=== PATIENT | male | born 1945 | race Caucasian/White ===

== ENCOUNTER 2021-05-19 10:22 | Inpatient (IN) | payer MEDICAID ==
[~2021-05-19] VITALS: Ht 157.5 cm; Wt 72.6 kg
[2021-05-19 10:39] VITALS: BP 141/51
--- NOTE | 2021-05-19 10:45 | NUR ---
76 Y/O M BIBA C/O PICC LINE BLEEDING R UPPER CHEST. PT COMPLAINS OF NO PAIN AT THIS TIME. PT PULLED ONT THE PICC LINE GETTING OUT OF THE SHOWER. PT IS A DIALYSIS PT. LAST ONE WAS YESTERDAY. BLEEDING CONTROLLED WITH ICE AND PRESSURE. NKA PMH:HTN, DM, DIALYSIS ( MON, , MONDAY)
--- NOTE | 2021-05-19 10:47 | NUR ---
DR MEJIA AT BEDSIDE.
--- NOTE | 2021-05-19 11:05 | NUR ---
LAB AT BEDSIDE.
[2021-05-19 11:25] LABS: BASOPHILS # (AUTO) 0.1 K/uL (0.00-0.22); BASOPHILS % (AUTO) 1.7 % (0.0-2.0); EOSINOPHILS # (AUTO) 0.1 K/uL (0-0.4); EOSINOPHILS % (AUTO) 2.5 % (0.0-4.0); HEMOGLOBIN 10.5 g/dL (12.0-18.0); LYMPHOCYTES % (AUTO) 19.4 % (20.5-51.1); MEAN CORPUSCULAR HEMOGLOBIN 35 pg (27-31); MEAN CORPUSCULAR HGB CONC 34 g/dL (33-37); MONOCYTES # (AUTO) 0.4 K/uL (0.8-1.0); MONOCYTES % (AUTO) 7.9 % (1.7-9.3); NEUTROPHILS # (AUTO) 3.4 K/uL (1.8-7.7); NEUTROPHILS % (AUTO) 68.5 % (42.2-75.2); PLATELET COUNT (AUTO) 250 K/uL (140-450); RED BLOOD CELL COUNT(AUTO) 2.98 MIL/uL (4.20-6.10); RED CELL DISTRIBUTION WIDTH 15.2 % (11.6-13.7); WHITE BLOOD COUNT (AUTO) 4.9 K/uL (4.8-10.8)
--- NOTE | 2021-05-19 11:34 | NUR ---
X-RAY AT BEDSIDE.
[2021-05-19 11:43] LABS: PROTHROMBIN TIME 10.9 secs (10.8-13.4)
[2021-05-19 11:44] LABS: ALBUMIN 3.3 g/dL (3.4-5.0); ANION GAP 11.4 (8-16); ASPARTATE AMINOTRANSFERASE 13 U/L (15-37); CHLORIDE 105 mmol/L (98-107); GLUCOSE 139 mg/dL (74-106); POTASSIUM 4.4 mmol/L (3.5-5.1); SODIUM SERUM 141 mmol/L (136-145); TOTAL BILIRUBIN 0.4 mg/dL (0.0-1.0)
[2021-05-19 11:46] LABS: CREATININE 5.7 mg/dL (0.6-1.3)
[2021-05-19] MEDS ORDERED: PROPOFOL 200 MG/20 ML VIAL IV ONE (13:20)
[2021-05-19] MEDS ORDERED: fentaNYL citrate 0.05 MG/ML VIAL ONE (13:20)
--- NOTE | 2021-05-19 13:30 | NUR ---
PT IS GOING TO SURGERY VIA WHEELCHAIR.
[2021-05-19] MEDS ORDERED: ceFAZolin 1,000 MG VIAL ONE (13:45)
[2021-05-19] MEDS ORDERED: BUPIVACAINE-MPF/EPI 0.25% 30 ML VIAL INJ ONE (13:45)
[2021-05-19] MEDS ORDERED: LIDOCAINE 1% 500 MG/50 ML VIAL ONE (13:45)
[2021-05-19] MEDS ORDERED: BLOOD GLUCOSE MONITORING 1 DEV DEV FS SCH (14:55)
[2021-05-19] MEDS: NACL 0.9% 1,000 ML IV SCH ×2 (14:55→23:15)
[2021-05-19] MEDS ORDERED: diphenhydrAMINE 50 MG/ML VIAL IVP PRN (14:55)
[2021-05-19] MEDS ORDERED: ONDANSETRON 4 MG/2 ML VIAL IVP PRN (14:55)
[2021-05-19 15:40] VITALS: BP 125/63
--- NOTE | 2021-05-19 15:40 | NUR ---
PATIENT ARRIVED FROM SURGERY. IN STABLE. CONDITION. RIGHT TUNNELED CATHTER PLACED. SMALL AMOUNT BLEEDING. PRESSURE WEIGHT PLACED ON SITE. IV SITE INTACT, PATENT, AND INFUSING IVF PER MD ORDERS. WILL CONTINUE TO MONITOR.
--- NOTE | 2021-05-19 19:35 | NUR ---
GAVE REPORT TO FIELD PIPELINES SUPERVISOR NURSE FOR CONTINUITY OF CARE. PATIENT IN STABLE CONDITION.
--- NOTE | 2021-05-19 19:36 | NUR ---
RECEIVED PATIENT REPORT FROM AM SHIFT NURSE FOR CONTINUITY OF CARE. PATIENT IN BED AWAKE, ALERT AND VERBALLY RESPONSIVE. ABLE TO VERBALIZED NEEDS. BREATHING EVEN AND UNLABORED WITH NO SOB NOTED. NOT IN DISTRESS. DENIES ANY PAIN OR DISCOMFORT AT THIS TIME. ALL SAFETY MEASURES ARE IN PLACE. CALL LIGHT WITHIN REACH. WILL CONTINUE WITH THE CURRENT PLAN OF CARE.
--- NOTE | 2021-05-19 21:45 | NUR ---
DAUGHTER BROUGHT BAG WITH 2 BLANKETS AND BLACK GLOVES FOR PATIENT'S USE. BAG PUT IN PATIENT'S ROOM AND HE USED ONE BLANKET. THE OTHER BLANKET AND GLOVES LEFT IN THE BAG ON HIS BEDSIDE TABLE.
[2021-05-20] VITALS: BP 145/61
--- NOTE | 2021-05-20 00:19 | NUR ---
ROUNDED ON PATIENT. PATIENT ASLEEP WITH VISIBLE CHEST RISING AND FALLING. NO SOB NOTED. ALL SAFETY MEASURES IN PLACE. CALL LIGHT WITHIN REACH. WILL CONTINUE TO MONITOR.
--- NOTE | 2021-05-20 02:53 | NUR ---
CHECKED ON PATIENT. SLEEPING WELL. VISIBLE CHEST RISING AND FALLING. CALL LIGHT WITHIN REACH. WILL CONTINUE TO MONITOR.
--- NOTE | 2021-05-20 05:35 | NUR ---
Patient's Plan of Care was discussed and reviewed with CASKET ASSEMBLER: october
[2021-05-20 06:29] LABS: BASOPHILS # (AUTO) 0.1 K/uL (0.00-0.22); EOSINOPHILS # (AUTO) 0.2 K/uL (0-0.4); EOSINOPHILS % (AUTO) 3.6 % (0.0-4.0); HEMATOCRIT 29.7 % (36-52); HEMOGLOBIN 10.1 g/dL (12.0-18.0); LYMPHOCYTES # (AUTO) 0.9 K/uL (2.0-11.5); LYMPHOCYTES % (AUTO) 15.6 % (20.5-51.1); MEAN CORPUSCULAR HEMOGLOBIN 35 pg (27-31); MEAN CORPUSCULAR HGB CONC 34 g/dL (33-37); MEAN CORPUSCULAR VOLUME 103.7 fL (80-94); MONOCYTES # (AUTO) 0.4 K/uL (0.8-1.0); MONOCYTES % (AUTO) 8.1 % (1.7-9.3); NEUTROPHILS # (AUTO) 3.9 K/uL (1.8-7.7); NEUTROPHILS % (AUTO) 71.7 % (42.2-75.2); PLATELET COUNT (AUTO) 245 K/uL (140-450); RED BLOOD CELL COUNT(AUTO) 2.86 MIL/uL (4.20-6.10); RED CELL DISTRIBUTION WIDTH 14.6 % (11.6-13.7); WHITE BLOOD COUNT (AUTO) 5.5 K/uL (4.8-10.8)
[2021-05-20 07:11] LABS: ALBUMIN 3.1 g/dL (3.4-5.0); ASPARTATE AMINOTRANSFERASE 13 U/L (15-37); CARBON DIOXIDE 25.7 mmol/L (21-32); CHLORIDE 105 mmol/L (98-107); GLUCOSE 113 mg/dL (74-106); POTASSIUM 4.7 mmol/L (3.5-5.1); SODIUM SERUM 144 mmol/L (136-145); TOTAL BILIRUBIN 0.4 mg/dL (0.0-1.0); UREA NITROGEN, BLOOD 42 mg/dL (7-18)
[2021-05-20 07:18] LABS: CREATININE 6.7 mg/dL (0.6-1.3)
--- NOTE | 2021-05-20 07:20 | NUR ---
ENDORSED PATIENT TO AM SHIFT NURSE FOR CONTINUITY OF CARE. PATIENT IS STABLE.
--- NOTE | 2021-05-20 07:47 | NUR ---
CALL PLACE TO KAMERON DAUGHTER TO ASKED WHO IS THE NEPRO, PER KAMERON THE NEPHRO IS DR GOODWIN, , WILL INFORM DR ALMEIDA,
--- NOTE | 2021-05-20 07:56 | NUR ---
TALKED TO EDELMIRA FOR THE DIALYSIS
[2021-05-20 08:00] VITALS: BP 137/68
--- NOTE | 2021-05-20 08:15 | NUR ---
PATIENT AWAKE, DRESSING ON RIGHT TUNNELED CATHETER INTACT WITH DRY BLOOD, 2 PORT, ON ROOM AIR, WILL CALL MD PATIENT ON CLEAR LIQUID DIET, CALL LIGHT WITHIN EASY REACH.
--- NOTE | 2021-05-20 08:37 | NUR ---
PATIENT HAS BEEN SCREENED AND CATEGORIZED LOW NUTRITION RISK. PATIENT WILL BE SEEN WITHIN 7 DAYS OF ADMISSION. 05/24/21 REFERRAL RECEIVED NOT APPLICABLE [address]
[2021-05-20] MEDS ORDERED: ZOLPIDEM 5 MG TAB PO PRN (08:50)
[2021-05-20] MEDS ORDERED: DOCUSATE SODIUM 100 MG GELCAP PO PRN (08:50)
[2021-05-20] MEDS ORDERED: ONDANSETRON 4 MG/2 ML VIAL IM/IVP PRN (08:50)
[2021-05-20] MEDS ORDERED: POTASSIUM CHLORIDE 10 MEQ TABER PO PRN (08:50)
[2021-05-20] MEDS ORDERED: LORazepam 2 MG/ML VIAL IM/IVP PRN (08:50)
[2021-05-20] MEDS ORDERED: ACETAMINOPHEN 325 MG TAB PO PRN (08:50)
[2021-05-20] MEDS ORDERED: HYDROcodone/APAP 5/325 MG 1 TAB TAB PO PRN (08:50)
[2021-05-20] MEDS ORDERED: MAG SULF 2000 MG/WATER PREMIX 50 ML IV PRN (08:50)
[2021-05-20] MEDS ORDERED: MORPHINE SULFATE 2 MG/ML SYR IVP PRN (08:50)
[2021-05-20 11:39] LABS: THYROID STIMULATING HORMONE 1.02 uIU/mL (0.34-3.74)
--- NOTE | 2021-05-20 11:56 | NUR ---
DIALYSIS DONE, 2L OUTPUT, PATIENT ALERT ORIENTED, NO SOB NOTED.
--- NOTE | 2021-05-20 13:30 | NUR ---
PATIENT CHANGED HIS CLOTHES , INFORMED MD, WAITING FOR MD RESPONSE
[2021-05-20 17:09] VITALS: BP 130/72
--- NOTE | 2021-05-20 17:29 | NUR ---
CALL PLACE TO DR. ALMEIDA TO ASK FOR THE DC ORDER, NO ANSWER, WILL FOLLOW UP
--- NOTE | 2021-05-20 17:31 | NUR ---
TALKED TO DR. GIRON, MADE AWARE PT IS FOR DC, MD MARCANO FOR DC
--- NOTE | 2021-05-20 19:00 | NUR ---
WHEELED TO LOBBY, PATIENT ALERT ORIENTED, GEORGIAN SPEAKING, NO C/O PAIN, SKIN WARM TO TOUCH RESP. EVEN AND UNLABORED, RIGHT CHEST TUNNELED CATHETER INTACT NO BLEEDING NOTED, PICKED UP BY DAUGHTER IN GOOD CONDITION.
[2021-05-21 08:07] LABS: T4 (THYROXINE) 5.9 ug/dL (4.5-12.0)
== END 2021-05-20 19:00 | disposition home or self-care (01) | DRG 466 ==
LOC: MED 10:22 → MTU 13:32 → MMU 16:15
PROC: 05PYX3Z Removal of Infusion Device from Upper Vein, External Approach (ICD-10-PCS; 2021-05-19)
PROC: 0JH63XZ Insertion of Tunneled Vascular Access Device into Chest Subcutaneous Tissue and Fascia, Percutaneous Approach (ICD-10-PCS; 2021-05-19)
PROC: 02HV33Z Insertion of Infusion Device into Superior Vena Cava, Percutaneous Approach (ICD-10-PCS; 2021-05-19)
PROC: B518ZZA Fluoroscopy of Superior Vena Cava, Guidance (ICD-10-PCS; 2021-05-19)
PROC: 0JPT3XZ Removal of Tunneled Vascular Access Device from Trunk Subcutaneous Tissue and Fascia, Percutaneous Approach (ICD-10-PCS; principal; 2021-05-19 13:00)
PROC: 5A1D70Z Performance of Urinary Filtration, Intermittent, Less than 6 Hours Per Day (ICD-10-PCS; 2021-05-20)
DX: T82.41XA Breakdown (mechanical) of vascular dialysis catheter, initial encounter (principal); N18.6 End stage renal disease; N17.0 Acute kidney failure with tubular necrosis; I50.43 Acute on chronic combined systolic (congestive) and diastolic (congestive) heart failure; E44.0 Moderate protein-calorie malnutrition; D63.8 Anemia in other chronic diseases classified elsewhere; I13.2 Hypertensive heart and chronic kidney disease with heart failure and with stage 5 chronic kidney disease, or end stage renal disease; Y83.8 Other surgical procedures as the cause of abnormal reaction of the patient, or of later complication, without mention of misadventure at the time of the procedure; Z20.822 Contact with and (suspected) exposure to COVID-19; Z68.29 Body mass index [BMI] 29.0-29.9, adult; Y92.89 Other specified places as the place of occurrence of the external cause
CPT/HCPCS: 36415; 71045; 80053; 83036; 83690; 83880; 84134; 84436; 84443; 85025; 85610; 85730; 86886; 86900; 86901; 87081; 88300; 99285; J0690; J1644; J2001; J2704; J3010; J3490; J7030; Q0092

== ENCOUNTER 2021-08-17 19:52 | Emergency (ER) | payer MEDICAID ==
[~2021-08-17] VITALS: Ht 165.1 cm; Wt 67.6 kg
[2021-08-17 19:55] VITALS: BP 123/59
--- NOTE | 2021-08-17 20:08 | NUR ---
PT AMBULATORY W USE OF WALKER TO BED 2.
--- NOTE | 2021-08-17 21:30 | NUR ---
Pt in bed without distress. No n/v noted since arriving to ED. Motor Vehicle Emissions Inspector at bedside, drawing blood. museum exhibit technician obtaining EKG. Daughter on the phone. Plan of care reviewed w/ family and receptive. CT w/ IV contrast ordered and questionnaire completed w/ patient and daughter. No further questions. 20g IV established on R AC.
[2021-08-17 21:45] LABS: ALBUMIN 3.6 g/dL (3.4-5.0); ANION GAP 15.8 (8-16); ASPARTATE AMINOTRANSFERASE 14 U/L (15-37); CARBON DIOXIDE 38.1 mmol/L (21-32); CHLORIDE 90 mmol/L (98-107); GLUCOSE 239 mg/dL (74-106); LIPASE 587 U/L (73-393); POTASSIUM 3.9 mmol/L (3.5-5.1); SODIUM SERUM 140 mmol/L (136-145); TOTAL BILIRUBIN 0.5 mg/dL (0.0-1.0)
[2021-08-17 21:46] LABS: CREATININE 9.1 mg/dL (0.6-1.3); UREA NITROGEN, BLOOD 72 mg/dL (7-18)
[2021-08-17 21:56] LABS: BASOPHILS % (AUTO) 0.6 % (0.0-2.0); EOSINOPHILS # (AUTO) 0.1 K/uL (0-0.4); EOSINOPHILS % (AUTO) 1.1 % (0.0-4.0); HEMATOCRIT 31.9 % (36-52); HEMOGLOBIN 10.9 g/dL (12.0-18.0); LYMPHOCYTES # (AUTO) 0.9 K/uL (2.0-11.5); LYMPHOCYTES % (AUTO) 11.8 % (20.5-51.1); MEAN CORPUSCULAR HEMOGLOBIN 36 pg (27-31); MEAN CORPUSCULAR HGB CONC 34 g/dL (33-37); MEAN CORPUSCULAR VOLUME 104.3 fL (80-94); MONOCYTES # (AUTO) 0.7 K/uL (0.8-1.0); MONOCYTES % (AUTO) 9.9 % (1.7-9.3); NEUTROPHILS # (AUTO) 5.7 K/uL (1.8-7.7); NEUTROPHILS % (AUTO) 76.6 % (42.2-75.2); PLATELET COUNT (AUTO) 342 K/uL (140-450); RED BLOOD CELL COUNT(AUTO) 3.06 MIL/uL (4.20-6.10); WHITE BLOOD COUNT (AUTO) 7.4 K/uL (4.8-10.8)
[2021-08-17 23:49] VITALS: BP 150/70
--- NOTE | 2021-08-17 23:49 | NUR ---
Patient discharged with v/s stable. Written and verbal after care instructions given and explained to pt's daughter and grand-daughter by Dr. Billings. Copy of lab results also provided for f/u. Pt advised to go to dialysis tomorrow. Family receptive to info and patient verbalized understanding. Ambulatory with steady gait. All questions addressed prior to discharge. Advised to follow up with PMD.
== END 2021-08-17 23:49 | disposition home or self-care (01) ==
LOC: MED 19:52
DX: E11.22 Type 2 diabetes mellitus with diabetic chronic kidney disease (principal); I12.0 Hypertensive chronic kidney disease with stage 5 chronic kidney disease or end stage renal disease; N18.6 End stage renal disease; M89.8X8 Other specified disorders of bone, other site; Z20.822 Contact with and (suspected) exposure to COVID-19; Z99.2 Dependence on renal dialysis
CPT/HCPCS: 36415; 71045; 74177; 80053; 83690; 85025; 87426; 93005; 99285; Q9967

== ENCOUNTER 2021-09-10 15:33 | Emergency (ER) | payer MEDICAID ==
[~2021-09-10] VITALS: Ht 162.6 cm; Wt 58.5 kg
[2021-09-10 15:42] VITALS: BP 97/50
--- NOTE | 2021-09-10 15:42 | NUR ---
TO ER BED 01
--- NOTE | 2021-09-10 15:55 | NUR ---
MOVED TO ER BED 3
[2021-09-10] MEDS ORDERED: METOCLOPRAMIDE 10 MG/2 ML INJ VIAL IVP ONE (16:10)
--- NOTE | 2021-09-10 16:37 | NUR ---
XR AT PT BEDSIDE
[2021-09-10 16:44] LABS: BASOPHILS # (AUTO) 0.1 K/uL (0.00-0.22); BASOPHILS % (AUTO) 0.9 % (0.0-2.0); EOSINOPHILS # (AUTO) 0.1 K/uL (0-0.4); EOSINOPHILS % (AUTO) 0.9 % (0.0-4.0); HEMOGLOBIN 14.5 g/dL (12.0-18.0); LYMPHOCYTES # (AUTO) 1.4 K/uL (2.0-11.5); LYMPHOCYTES % (AUTO) 20.9 % (20.5-51.1); MEAN CORPUSCULAR HEMOGLOBIN 35 pg (27-31); MEAN CORPUSCULAR HGB CONC 34 g/dL (33-37); MEAN CORPUSCULAR VOLUME 102.9 fL (80-94); MONOCYTES # (AUTO) 0.6 K/uL (0.8-1.0); MONOCYTES % (AUTO) 8.7 % (1.7-9.3); NEUTROPHILS # (AUTO) 4.5 K/uL (1.8-7.7); NEUTROPHILS % (AUTO) 68.6 % (42.2-75.2); PLATELET COUNT (AUTO) 324 K/uL (140-450); RED BLOOD CELL COUNT(AUTO) 4.18 MIL/uL (4.20-6.10); RED CELL DISTRIBUTION WIDTH 16.1 % (11.6-13.7); WHITE BLOOD COUNT (AUTO) 6.6 K/uL (4.8-10.8)
[2021-09-10] MEDS ORDERED: ACETAMINOPHEN 325 MG TAB PO ONE (16:55)
[2021-09-10 17:06] LABS: ALBUMIN 4.7 g/dL (3.4-5.0); ANION GAP 17.9 (8-16); ASPARTATE AMINOTRANSFERASE 18 U/L (15-37); CARBON DIOXIDE 32.7 mmol/L (21-32); CHLORIDE 89 mmol/L (98-107); GLUCOSE 165 mg/dL (74-106); LIPASE 370 U/L (73-393); MAGNESIUM 2.8 mg/dL (1.8-2.4); PHOSPHORUS 6.1 mg/dL (2.5-4.9); POTASSIUM 3.6 mmol/L (3.5-5.1); SODIUM SERUM 136 mmol/L (136-145); TOTAL BILIRUBIN 0.7 mg/dL (0.0-1.0); UREA NITROGEN, BLOOD 38 mg/dL (7-18)
[2021-09-10 17:07] LABS: CREATININE 6.7 mg/dL (0.6-1.3)
[2021-09-10] MEDS ORDERED: ONDA-188 SL (17:40)
[2021-09-10 18:19] VITALS: BP 97/50
== END 2021-09-10 18:21 | disposition home or self-care (01) ==
LOC: MED 15:33
DX: R11.10 Vomiting, unspecified (principal); E11.22 Type 2 diabetes mellitus with diabetic chronic kidney disease; I12.0 Hypertensive chronic kidney disease with stage 5 chronic kidney disease or end stage renal disease; N18.6 End stage renal disease; Z99.2 Dependence on renal dialysis; Z79.899 Other long term (current) drug therapy
CPT/HCPCS: 36415; 71045; 80053; 83690; 83735; 84100; 84484; 85025; 87040; 96374; 99285; J2765

== ENCOUNTER 2022-04-21 18:01 | Emergency (ER) | payer MEDICAID ==
[~2022-04-21] VITALS: Ht 160 cm; Wt 58.5 kg
[~2022-04-21 18:01] MED LIST: ONDA-188 SL
[2022-04-21 18:06] VITALS: BP 198/99
[2022-04-21] MEDS ORDERED: MORPHINE SULFATE 4 MG/ML SYR IVP ONE (18:30)
[2022-04-21] MEDS ORDERED: ONDANSETRON 4 MG/2 ML VIAL IVP ONE ×2 (18:45→22:35)
[2022-04-21 19:10] LABS: BASOPHILS % (AUTO) 0.3 % (0.0-2.0); EOSINOPHILS % (AUTO) 0.2 % (0.0-4.0); HEMATOCRIT 26.6 % (36-52); HEMOGLOBIN 8.9 g/dL (12.0-18.0); LYMPHOCYTES # (AUTO) 1.7 K/uL (2.0-11.5); LYMPHOCYTES % (AUTO) 10.4 % (20.5-51.1); MEAN CORPUSCULAR HEMOGLOBIN 36 pg (27-31); MEAN CORPUSCULAR HGB CONC 34 g/dL (33-37); MEAN CORPUSCULAR VOLUME 107.3 fL (80-94); MONOCYTES # (AUTO) 0.6 K/uL (0.8-1.0); MONOCYTES % (AUTO) 3.9 % (1.7-9.3); NEUTROPHILS # (AUTO) 14.1 K/uL (1.8-7.7); NEUTROPHILS % (AUTO) 85.2 % (42.2-75.2); PLATELET COUNT (AUTO) 432 K/uL (140-450); RED BLOOD CELL COUNT(AUTO) 2.48 MIL/uL (4.20-6.10); RED CELL DISTRIBUTION WIDTH 14.6 % (11.6-13.7); WHITE BLOOD COUNT (AUTO) 16.5 K/uL (4.8-10.8)
[2022-04-21 19:33] LABS: ALBUMIN 2.7 g/dL (3.4-5.0); ANION GAP 26.2 (8-16); ASPARTATE AMINOTRANSFERASE 19 U/L (15-37); CARBON DIOXIDE 15.9 mmol/L (21-32); CHLORIDE 100 mmol/L (98-107); GLUCOSE 255 mg/dL (74-106); POTASSIUM 4.1 mmol/L (3.5-5.1); SODIUM SERUM 138 mmol/L (136-145); TOTAL BILIRUBIN 0.3 mg/dL (0.0-1.0)
[2022-04-21 19:38] LABS: CREATININE 5.7 mg/dL (0.6-1.3); UREA NITROGEN, BLOOD 79 mg/dL (7-18)
[2022-04-21] MEDS ORDERED: LORazepam 2 MG/ML VIAL IVP ONE (22:35)
--- NOTE | 2022-04-21 23:45 | NUR ---
[facility] TRANSPORT AT BEDSIDE
[2022-04-22] VITALS: BP 183/79
--- NOTE | 2022-04-22 | NUR ---
PT TAKEN BY NANI GOMEZ TO [facility]
--- NOTE | 2022-04-22 | NUR ---
Patient to be transferred to [facility], [address]. Is being transferred due to [place], ESRD, PER PATIENT'S INSURANCE. Receiving facility has accepting physician and available space. ER physician has signed transfer form. Patient or responsible green party has agreed to transfer and signed form. Patient belongings inventoried and will be sent with patient. Copy of nursing notes, lab reports, EKG, Physicians Orders and X-rays to be sent with patient. Report called to GABY PRINTING PRESS OPERATOR at receiving facility. [facility] ambulance service has been called for transfer. ETA is 20 MINUTES
== END 2022-04-22 | disposition short-term general hospital (02) ==
LOC: MED 18:01
DX: N19 Unspecified kidney failure (principal); Z20.822 Contact with and (suspected) exposure to COVID-19; E11.9 Type 2 diabetes mellitus without complications; I10 Essential (primary) hypertension; Z79.4 Long term (current) use of insulin; Z79.899 Other long term (current) drug therapy
CPT/HCPCS: 36415; 71045; 74176; 80053; 83605; 83880; 84484; 85025; 87426; 93005; 96374; 96375; 96376; 99285; J2060; J2270; J2405; Q0092